=== PATIENT | female | born 1935 | race Caucasian/White ===

== ENCOUNTER 2016-05-27 15:10 | Outpatient (CLI) | payer MEDICARE | END 2016-05-27 15:11 | disposition home or self-care (01) | DX: I48.1 Persistent atrial fibrillation (principal); I50.32 Chronic diastolic (congestive) heart failure; R53.83 Other fatigue; R00.2 Palpitations; I49.5 Sick sinus syndrome ==

== ENCOUNTER 2016-10-19 19:43 | Outpatient (CLI) | payer MEDICARE | END 2016-10-19 19:44 | disposition home or self-care (01) | LOC: LAB.R 19:43 | PROVIDERS: ATTEND Physician Assistant Medical | DX: N30.00 Acute cystitis without hematuria (principal) | CPT/HCPCS: 87086 ==

== ENCOUNTER 2017-03-17 13:17 | Outpatient (CLI) | payer MEDICARE ==
[2017-03-17 18:13] LABS: BASOPHILS % (AUTO) 0.9 %; EOSINOPHILS # (AUTO) 0.2 10^3/uL (0.0-0.7); EOSINOPHILS % (AUTO) 5.3 %; HGB - HEMOGLOBIN 10.1 g/dL (12.0-16.0); LYMPHOCYTES # (AUTO) 0.4 10^3/uL (1.5-3.5); LYMPHOCYTES % (AUTO) 8.6 %; MEAN CORPUSCULAR HEMOGLOBIN 20.9 pg (27.0-31.0); MEAN CORPUSCULAR HGB CONC 29.8 g/dL (32.0-36.0); MEAN CORPUSCULAR VOLUME 70.1 fL (81.0-99.0); MEAN PLATELET VOLUME 7.4 fL (7.9-10.8); MONOCYTES # (AUTO) 0.6 10^3/uL (0.0-1.0); MONOCYTES % (AUTO) 12.5 %; NEUTROPHILS # (AUTO) 3.3 10^3/uL (1.5-6.6); NEUTROPHILS % (AUTO) 72.7 %; PLT - PLATELET COUNT 496 10^3/uL (130-450); RED BLOOD COUNT 4.84 10^6/uL (4.20-5.40); RED CELL DISTRIBUTION WIDTH 18.2 % (12.0-15.0); WHITE BLOOD COUNT 4.6 x10^3/uL (4.8-10.8)
== END 2017-03-17 13:18 | disposition home or self-care (01) ==
LOC: LAB.F 13:17
PROVIDERS: ATTEND Internal Medicine
DX: D64.9 Anemia, unspecified (principal)
CPT/HCPCS: 36415; 82728; 85025

== ENCOUNTER 2017-06-01 08:00 | Outpatient (CLI) | payer MEDICARE | END 2017-06-01 08:01 | LOC: LAB.R 08:00 | PROVIDERS: ATTEND Nurse Practitioner Primary Care | DX: N30.00 Acute cystitis without hematuria (principal) | CPT/HCPCS: 87086 ==

== ENCOUNTER 2017-08-08 08:00 | Outpatient (CLI) | payer MEDICARE | END 2017-08-08 08:01 | disposition home or self-care (01) | LOC: LAB.R 08:00 | PROVIDERS: ATTEND Internal Medicine | DX: N30.00 Acute cystitis without hematuria (principal) | CPT/HCPCS: 87086; 87181 ==

== ENCOUNTER 2018-01-26 15:25 | Outpatient (CLI) | payer MEDICARE ==
--- NOTE | 2018-01-26 16:30 | XRAY Report ---
Reason: PAIN IN LEFT WRIST Procedure Date: 01/26/2018 Accession Number: [id number] / [id number] Procedure: XR - Wrist 2 View LT CPT Code: FULL RESULT: EXAM: LEFT WRIST RADIOGRAPHY EXAM DATE: 01/26/2018 03:36 PM. CLINICAL HISTORY: PAIN IN LEFT WRIST. COMPARISON: None. TECHNIQUE: 2 views. FINDINGS: Bones: Normal. No fractures or bone lesions. Joints: Degenerative narrowing, sclerosis, and spurring at the first CMC joint. No subluxations. Soft Tissues: Diffuse soft tissue swelling. 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 RADIA
== END 2018-01-26 15:26 | disposition home or self-care (01) ==
LOC: DI 15:25
PROVIDERS: ATTEND Internal Medicine
DX: M19.032 Primary osteoarthritis, left wrist (principal)
CPT/HCPCS: 36415; 84550

== ENCOUNTER 2018-03-19 13:20 | Outpatient (CLI) | payer MEDICARE | END 2018-03-19 13:21 | disposition short-term general hospital (02) | LOC: EMS 13:20 | PROVIDERS: ATTEND Surgery | DX: R42 Dizziness and giddiness (principal); M25.561 Pain in right knee; R51 Headache; M25.512 Pain in left shoulder; R35.0 Frequency of micturition; W18.39XA Other fall on same level, initial encounter; Y92.002 Bathroom of unspecified non-institutional (private) residence as the place of occurrence of the external cause | CPT/HCPCS: A0170; A0425; A0427 ==

== ENCOUNTER 2018-03-31 19:27 | Outpatient (CLI) | payer MEDICARE | END 2018-03-31 19:28 | disposition short-term general hospital (02) | LOC: EMS 19:27 | PROVIDERS: ATTEND Surgery | DX: R06.02 Shortness of breath (principal); R41.82 Altered mental status, unspecified; Z98.890 Other specified postprocedural states | CPT/HCPCS: A0425; A0427 ==

== ENCOUNTER 2018-04-06 14:51 | Emergency (ER) | payer MEDICARE ==
--- NOTE | 2018-04-06 18:00 | Ultrasound Report ---
Reason: pain and swelling Procedure Date: 04/06/2018 Accession Number: [id number] / [id number] Procedure: US - Duplex Ext Veins Left CPT Code: FULL RESULT: EXAM: LEFT LOWER EXTREMITY VENOUS ULTRASOUND EXAM DATE: 04/06/2018 04:43 PM. CLINICAL HISTORY: Pain and swelling. COMPARISON: None. TECHNIQUE: Real-time sonographic vascular imaging was performed by the core finisher through the lower extremity utilizing both color-flow and Doppler spectral analysis. Multiple passenger representative static images were saved for review. FINDINGS: Common Femoral Vein (CFV): Normal. CFV-GSV Junction: Normal. Profunda Femoral Vein (PFV): Normal. Femoral Vein (FV) Prox: Normal. Femoral Vein (FV) Mid: Normal. Femoral Vein (FV) Dist: Normal. Popliteal Vein: Normal. Posterior Tibial Veins: Normal. Peroneal Veins: Normal. Contralateral calf veins: Normal. Other: None. IMPRESSION: No evidence for deep venous thrombosis. RADIA
[2018-04-06 18:05] VITALS: BP 131/63
--- NOTE | 2018-04-06 18:48 | ED Physician Documentation ---
History of Present Illness - Stated complaint Stated Complaint: LEG PX/SENT BY ROOF - Chief complaint Chief Complaint: Trauma Ext - History obtained from History obtained from: Patient, Family - History of Present Illness Timing: How many days ago (3) Pain level max: 4 Pain level now: 1 - Additonal information Additional information: 83-year-old female status post right knee patellar fracture surgery 2 weeks ago. States that her left leg started swelling a few days ago and became more painful today. Sent in for an ultrasound to rule out DVT. Better with rest and worse with walking. She is nonweightbearing on the right lower extremity still Review of Systems Constitutional: denies: Fever, Chills Respiratory: denies: Dyspnea, Cough GI: denies: Abdominal Pain, Nausea, Vomiting, Diarrhea Skin: denies: Rash PD PAST MEDICAL HISTORY - Present Medications Home Medications: Ambulatory Orders Medication Instructions Recorded Confirmed Ferrous Gluconate 324 mg PO DAILY 03/21/14 03/28/17 Aspirin 81 mg ORAL DAILY 01/10/15 03/28/17 Pantoprazole [Protonix] 40 mg PO BID 11/06/15 03/28/17 Spironolactone 25 mg PO DAILY 11/06/15 03/28/17 - Allergies Allergies/Adverse Reactions: Allergies Allergy/AdvReac Type Severity Reaction Status Date / Time Sulfa (Sulfonamide Allergy Severe Respiratory Verified 04/06/18 15:27 Antibiotics) apple Allergy Unknown Verified 04/06/18 15:27 cao Allergy Unknown Verified 04/06/18 15:27 mushroom Allergy Unknown Verified 04/06/18 15:27 peach Allergy Unknown Verified 04/06/18 15:27 PD ED PE NORMAL - Vitals Vital signs reviewed: Yes - General General: Alert and oriented X 3, No acute distress - HEENT HEENT: Moist mucous membranes - Neck Neck: Supple, no meningeal sign - Cardiac Cardiac: RRR - Respiratory Respiratory: No respiratory distress, Clear bilaterally - Derm Derm: Warm and dry - Extremities Extremities: Other (Left lower extremity with diffuse pitting edema. No calf tenderness. No skin changes) - Neuro Neuro: Alert and oriented X 3 Results - Vitals Vitals: Vital Signs - 24 hr 04/06/18 04/06/18 15:21 18:03 Temperature 36.5 C 36.6 C Heart Rate 66 65 Respiratory 18 12 Rate Blood Pressure 132/58 H 131/63 H O2 Saturation 99 95 Oxygen O2 Source Room air - Rads (name of study) Duplex ultrasound left lower extremity Radiology: Prelim report reviewed, EMP read contemporaneously, See rad report (No evidence for deep venous thrombosis. ) PD MEDICAL DECISION MAKING - ED course Complexity details: reviewed results, re-evaluated patient, considered differential, d/w patient, d/w family ED course: 83-year-old female presents to the emergency department with left lower extremity swelling, negative for DVT. No evidence of cellulitis. Likely secondary to overuse given her nonweightbearing status on the right lower extremity. Will encourage rest and elevation. Patient counseled regarding signs and symptoms for which I believe and urgent re-evaluation would be necessary. Patient with good understanding of and agreement to plan and is comfortable going home at this time This document was made in part using voice recognition software. While efforts are made to proofread this document, sound alike and grammatical errors may occur. Departure - Departure Disposition: 01 Home, Self Care Clinical Impression: Peripheral edema Condition: Good Instructions: ED Leg Swelling Unilateral Follow-Up: Melvin Douglas MD [Primary Care Provider] - Within 1 week Comments: Return if you worsen. Elevate your legs as much as possible. Your ultrasound is normal tonight. Discharge Date/Time: 04/06/18 19:01
== END 2018-04-06 19:01 | disposition home or self-care (01) ==
LOC: ED 14:51
DX: R60.0 Localized edema (principal); Z79.82 Long term (current) use of aspirin
CPT/HCPCS: 80053; 83690; 85025; 99282; 99283

== ENCOUNTER 2018-04-07 10:49 | Outpatient (CLI) | payer MEDICARE | END 2018-04-07 10:50 | disposition EMS.NT | LOC: EMS 10:49 | PROVIDERS: ATTEND Surgery | DX: Z03.89 Encounter for observation for other suspected diseases and conditions ruled out (principal) ==

== ENCOUNTER 2018-05-07 06:21 | Outpatient (CLI) | payer MEDICARE | END 2018-05-07 06:22 | disposition short-term general hospital (02) | LOC: EMS 06:21 | PROVIDERS: ATTEND Surgery | DX: R06.02 Shortness of breath (principal); R68.83 Chills (without fever) | CPT/HCPCS: A0425; A0429 ==

== ENCOUNTER 2019-05-04 05:57 | Outpatient (CLI) | payer MEDICARE | END 2019-05-04 05:58 | disposition short-term general hospital (02) | LOC: EMS 05:57 | PROVIDERS: ATTEND Surgery | DX: R06.02 Shortness of breath (principal); R05 Cough; R60.0 Localized edema | CPT/HCPCS: A0425; A0427 ==

== ENCOUNTER 2019-05-23 09:49 | Outpatient (CLI) | payer MEDICARE | END 2019-05-23 09:50 | disposition EMS.NT | LOC: EMS 09:49 | PROVIDERS: ATTEND Surgery | DX: R06.02 Shortness of breath (principal) ==

== ENCOUNTER 2019-06-05 19:28 | Outpatient (CLI) | payer MEDICARE | END 2019-06-05 19:29 | disposition critical access hospital (66) | LOC: EMS 19:28 | PROVIDERS: ATTEND Surgery | DX: S01.81XA Laceration without foreign body of other part of head, initial encounter (principal); R42 Dizziness and giddiness; W18.39XA Other fall on same level, initial encounter; Y92.008 Other place in unspecified non-institutional (private) residence as the place of occurrence of the external cause | CPT/HCPCS: A0425; A0429 ==

== ENCOUNTER 2019-06-05 20:01 | Emergency (ER) | payer MEDICARE ==
--- NOTE | 2019-06-05 20:20 | ED Physician Documentation ---
History of Present Illness - Stated complaint Stated Complaint: SYNCOPE - Chief complaint Chief Complaint: Trauma Hd/Nk - History obtained from History obtained from: Patient (84 yo F w/ pmh of atrial fibrillation who is not anticoagulated presents via EMS after a fall at home. Pt states she took a benadryl tonight to help her get to sleep and as she was walking to sit on the couch and watch tv she felt briefly dizzy and then fell. She hit her head on the ground and sustained a large laceration to the forehead. She did not lose consciousness. She denies any pain in the extremities or other injuries. She denies any other prodromal sx including chest pain, dyspnea, heart palpitations, confusion, headache. No known seizure like activity, no incontinence or tongue biting. Pt states she has been feeling well up until the fall and has not had any fever, chills, cough or URI sx, vomiting or diarrhea, or dysuria or other urinary problems. Her only complaint is a headache.) Review of Systems Constitutional: reports: Reviewed and negative Eyes: denies: Loss of vision, Decreased vision, Discharge, Irritation Ears: reports: Reviewed and negative Nose: reports: Reviewed and negative Throat: reports: Reviewed and negative Cardiac: reports: Reviewed and negative Respiratory: reports: Reviewed and negative GI: reports: Reviewed and negative : reports: Reviewed and negative Skin: reports: Abrasion (s), Laceration (s) Musculoskeletal: reports: Reviewed and negative Neurologic: reports: Syncope, Headache, Head injury. denies: Generalized weakness, Focal weakness, Numbness, Difficulty speaking, Seizure, Confused, Altered mental status, Unresponsive, LOC PD PAST MEDICAL HISTORY - Past Medical History Past Medical History: Yes Cardiovascular: Atrial fibrillation GI: Ulcers - Past Surgical History Past Surgical History: Yes Ortho: Knee replacement - Present Medications Home Medications: Ambulatory Orders Medication Instructions Recorded Confirmed Ferrous Gluconate 324 mg PO DAILY 03/21/14 03/28/17 Aspirin 81 mg ORAL DAILY 01/10/15 03/28/17 Pantoprazole [Protonix] 40 mg PO BID 11/06/15 03/28/17 Spironolactone 25 mg PO DAILY 11/06/15 03/28/17 - Allergies Allergies/Adverse Reactions: Allergies Allergy/AdvReac Type Severity Reaction Status Date / Time Sulfa (Sulfonamide Allergy Severe Respiratory Verified 06/05/19 20:41 Antibiotics) apple Allergy Unknown Verified 06/05/19 20:41 cao Allergy Unknown Verified 06/05/19 20:41 mushroom Allergy Unknown Verified 06/05/19 20:41 peach Allergy Unknown Verified 06/05/19 20:41 - Social History Does the pt smoke?: No Smoking Status: Never smoker Does the pt drink ETOH?: Yes ETOH Use: Wine Does the pt have substance abuse?: No - Immunizations Immunizations are current?: Yes - POLST Patient has POLST: No PD ED PE NORMAL - Vitals Vital signs reviewed: Yes - General General: Alert and oriented X 3, No acute distress, Well developed/nourished - HEENT HEENT: Ears normal, Moist mucous membranes, Pharynx benign, Other (There is a 4cm x 4cm skin tear on the left forehead and a superficial linear lac eration/tear just above the left eyebrow. There is a deeper 3cm laceration on the upper left forehead into the hairline. There is contusion and hematoms to the left side of the forehead from eyebrow to hairline. The calvarium is otherwise intact. ) - Neck Neck: Supple, no meningeal sign, No bony TTP, No adenopathy, No JVD - Cardiac Cardiac: No murmur, Strong equal pulses, Other (irregularly irregular) - Respiratory Respiratory: No respiratory distress, Clear bilaterally - Abdomen Abdomen: Normal bowel sounds, Non tender, Non distended - Derm Derm: Normal color, Warm and dry, Other (see skin lac/tear above) - Extremities Extremities: No deformity, No tenderness to palpate, No edema, No calf tenderness / cord - Neuro Neuro: Alert and oriented X 3, Other (oriented, but repeats same questions and complaints repeatedly. ) Eye Opening: Spontaneous Motor: Obeys Commands Verbal: Oriented GCS Score: 15 - Psych Psych: Normal mood, Normal affect Results - Vitals Vitals: Vital Signs - 24 hr 06/05/19 06/05/19 06/05/19 20:11 20:15 21:23 Temperature 36.9 C Heart Rate 80 80 92 Respiratory 18 18 16 Rate Blood Pressure 127/94 H 127/94 H 121/69 O2 Saturation 100 100 97 06/05/19 06/05/19 23:00 23:55 Temperature Heart Rate 87 60 Respiratory 18 16 Rate Blood Pressure 130/90 H 120/77 O2 Saturation 100 100 Oxygen O2 Source Room air - Labs Labs: Laboratory Tests 06/05/19 06/05/19 06/05/19 20:30 20:30 20:30 WBC 7.1 RBC 4.25 Hgb 10.6 L Hct 36.2 L MCV 85.2 MCH 24.9 L MCHC 29.3 L RDW 19.6 H Plt Count 341 MPV 9.1 Neut # (Auto) 6.4 Lymph # (Auto) 0.4 L Blanco # (Auto) 0.3 Eos # (Auto) 0.0 Baso # (Auto) 0.0 Absolute Nucleated RBC 0.00 Nucleated RBC % 0.0 Sodium 133 L Potassium 5.1 H Chloride 103 Carbon Dioxide 21 Anion Gap 9.0 BUN 30 H Creatinine 1.1 H Estimated GFR (MDRD) 47 L Glucose 117 H Calcium 9.4 Total Bilirubin 0.5 AST 55 H ALT 36 Alkaline Phosphatase 90 Troponin I High Sens 17.3 H* Total Protein 7.7 Albumin 4.3 Globulin 3.4 Albumin/Globulin Ratio 1.3 Lipase 62 H 06/05/19 22:41 WBC RBC Hgb Hct MCV MCH MCHC RDW Plt Count MPV Neut # (Auto) Lymph # (Auto) Blanco # (Auto) Eos # (Auto) Baso # (Auto) Absolute Nucleated RBC Nucleated RBC % Sodium Potassium Chloride Carbon Dioxide Anion Gap BUN Creatinine Estimated GFR (MDRD) Glucose Calcium Total Bilirubin AST ALT Alkaline Phosphatase Troponin I High Sens 21.9 H* Total Protein Albumin Globulin Albumin/Globulin Ratio Lipase Procedures - Laceration (location) left forehead Wound type: Other (There is a 4cm diameter around skin tear with a partially viable flap on the left forehead which was irrigated and then repaired with 7 simple interruptd #6.0 nylon sutures. The superficial skin tear/lac over the left eyebrow was clsoed w/ steristrips. The laceration left uppper forehead was closed with 8 continuous locked sutures with excellent wound aprpoximation.) PD MEDICAL DECISION MAKING - ED course Complexity details: reviewed old records, reviewed results, re-evaluated patient, considered differential, d/w patient ED course: Pt presented after a fall at home. She experienced dizziness before the fall which is not uncommon for her per chart review. She also took a benadryl which she states tends to make her "loopy." I have advised against taking benadryl in the future given age-related adverse reactions. She did not lose consciousness or have any seizure like activity. She had no chest pain or sob prodrome making a cardioopulmonary event less likely. Her EKG here showed afib which is her baseline. She had no acute st changes. Her trop was mildly elevated and I d/w Dr. Cantor who advised this small elevation on a high sensitivity trop given age and other comorbidities and lack of cardiac sx was ok for discharge and outpatient follow up which I d/w pt. Her head and neck CTs were negative for acute pathology. She had a large skin tear and laceration which I repaired. I advised fup w/ clinic in 7 days to re-eval skin tear and remove sutures. She was advised to keep clean/dry and apply cool compress. Return if s/sx of infection or otherwise new sx such as worsening headache, vision changes, chest pain, dyspnea, dizziness, or other new symptoms. Pt notes understanding of all instructions and all questions answered. Departure - Departure Disposition: 01 Home, Self Care Clinical Impression: Laceration Injury of head and neck Qualifiers: Encounter type: initial encounter Qualified Code(s): S09.90XA - Unspecified injury of head, initial encounter Condition: Good Instructions: ED Head Injury Closed, ED Laceration Repair Infec, ED Laceration Ext Sutr Stap Tape Comments: Follow up in 7-10 days for suture removal. The steristrips will fall off in 3-7 days, leave them in place until they fall off. Keep site clean and dry. You can wash gently with soap and water. Use and ice pack for the swelling. You may take tylenol for headache. PLEASE STOP TAKING BENADRYL. It is not a safe medication for people as they age and it can increase your risk of falling. You also have a history of frequent dizziness therefore want to avoid any medications that could make this worse. Make sure you are drinking plenty of water. If you have recurrent symptoms, persistent dizziness, confusion, chest pain, dyspnea, or other new symptoms, please return to the ER. Discharge Date/Time: 06/05/19 23:56
[2019-06-05 20:38] LABS: BASOPHILS % (AUTO) 0.3 %; HGB - HEMOGLOBIN 10.6 g/dL (12.0-16.0); LYMPHOCYTES # (AUTO) 0.4 10^3/uL (1.5-3.5); LYMPHOCYTES % (AUTO) 4.9 %; MEAN CORPUSCULAR HEMOGLOBIN 24.9 pg (27.0-31.0); MEAN CORPUSCULAR HGB CONC 29.3 g/dL (32.0-36.0); MEAN CORPUSCULAR VOLUME 85.2 fL (81.0-99.0); MEAN PLATELET VOLUME 9.1 fL (7.9-10.8); MONOCYTES # (AUTO) 0.3 10^3/uL (0.0-1.0); MONOCYTES % (AUTO) 4.1 %; NEUTROPHILS # (AUTO) 6.4 10^3/uL (1.5-6.6); NEUTROPHILS % (AUTO) 89.9 %; PLT - PLATELET COUNT 341 10^3/uL (130-450); RED BLOOD COUNT 4.25 10^6/uL (4.20-5.40); RED CELL DISTRIBUTION WIDTH 19.6 % (12.0-15.0); WHITE BLOOD COUNT 7.1 x10^3/uL (4.8-10.8)
[2019-06-05 20:53] LABS: ALBUMIN 4.3 g/dL (3.2-5.5); ALBUMIN/GLOBULIN RATIO 1.3 (1.0-2.2); BILIRUBIN,TOTAL 0.5 mg/dL (0.2-1.0); CALCIUM 9.4 mg/dL (8.5-10.3); CREATININE 1.1 mg/dL (0.4-1.0); TOTAL PROTEIN 7.7 g/dL (6.7-8.2)
--- NOTE | 2019-06-05 21:25 | CT Report ---
Reason: fall, left head contusions Procedure Date: 06/05/2019 Accession Number: [id number] / [id number] Procedure: CT - HEAD WO CPT Code: Final Report FULL RESULT: EXAM: CT HEAD EXAM DATE: 06/05/2019 09:06 PM. CLINICAL HISTORY: Fall, left head contusions. COMPARISON: None. TECHNIQUE: Multiaxial CT images were obtained from the foramen magnum to the vertex. Reformats: Sagittal and coronal. IV contrast: None. In accordance with CT protocol optimization, one or more of the following dose reduction techniques were utilized for this exam: automated exposure control, adjustment of mA and/or KV based on patient size, or use of iterative reconstructive technique. FINDINGS: Parenchyma: Negative for acute intracranial hemorrhage. There is no midline shift or mass-effect. There is mild nonfocal periventricular white matter hypodensity. Extraaxial Spaces: No subdural or epidural collections identified. Ventricles: Symmetric in size and normal in position. Sinuses and Orbits: Imaged paranasal sinuses, orbits, and mastoids show no significant abnormality. Bones: No evidence of fracture or calvarial defect. Other: There is a soft tissue defect and laceration of the anterior left scalp. No foreign body. IMPRESSION: 1. Negative for an acute or focal intracranial abnormality. 2. Anterior left scalp laceration without fracture. [facility]
--- NOTE | 2019-06-05 21:26 | XRAY Report ---
Reason: Chest Pain Procedure Date: 06/05/2019 Accession Number: [id number] / [id number] Procedure: XR - Chest 1 View X-Ray CPT Code: 53392 Final Report FULL RESULT: EXAM: CHEST RADIOGRAPHY EXAM DATE: 06/05/2019 09:14 PM. CLINICAL HISTORY: Chest Pain. COMPARISON: CXR PA TECHNIQUE: 1 view. FINDINGS: Cardiac device leads overlie the right atrium and ventricle. Atherosclerotic plaque calcifications are seen in the aorta. The heart is at the upper limits of normal in size. Biapical pleural thickening with upper lobe parenchymal scarring has slightly increased when compared to the 2007 examination. Calcified hilar lymph nodes are new. The lungs are hyperinflated. There is no focal consolidation, pleural effusion, or pneumothorax. There is a partially imaged old proximal left humeral fracture. IMPRESSION: Biapical pleural thickening and upper lobe parenchymal scarring, slightly increased since 2007. No focal consolidation. [facility]
--- NOTE | 2019-06-05 21:31 | CT Report ---
Reason: neck pain Procedure Date: 06/05/2019 Accession Number: [id number] / [id number] Procedure: CT - CERVICAL SPINE WO CPT Code: Final Report FULL RESULT: EXAM: CT CERVICAL SPINE WITHOUT CONTRAST DATE: 06/05/2019 09:06 PM. HISTORY: Neck pain. COMPARISONS: None. TECHNIQUE: Thin-section axial images were acquired of the cervical spine without contrast. Post-processing: Coronal and sagittal reformats. Other: None. In accordance with CT protocol optimization, one or more of the following dose reduction techniques were utilized for this exam: automated exposure control, adjustment of mA and/or KV based on patient size, or use of iterative reconstructive technique. FINDINGS: Alignment: Dextroscoliosis. No spondylolisthesis. Bones: No fracture or bone lesion. Interspace Levels/Facets: C1-C2: Narrowed. C2-C3: Mild disk height loss with mild diffuse disk bulge. C3-C4: Mild diffuse disk bulge and bilateral facet hypertrophy. C4-C5: Severe disk height loss with posterior osteophyte. Bilateral facet hypertrophy. Severe right neuroforaminal stenosis. C5-C6: Severe disk height loss. Posterior osteophytes and bilateral facet hypertrophy. Severe right neuroforaminal stenosis. C6-C7: Severe disk height loss. Bilateral facet hypertrophy. Severe right neuroforaminal stenosis. C7-T1: Unremarkable. Musculature: Normal. No fatty atrophy. Other: The paravertebral and prevertebral soft tissues are unremarkable. Biapical pleural thickening with parenchymal scarring, right greater than left, with bronchiectasis. Calcified granulomas are also seen in the right upper lobe. IMPRESSION: 1. No evidence of acute fracture or subluxation. 2. Cervical spondylosis. RADIA
[2019-06-05 23:56] VITALS: BP 120/77
== END 2019-06-05 23:56 | disposition home or self-care (01) ==
LOC: EDBD → EDUNIT# → ED 20:01
DX: S01.81XA Laceration without foreign body of other part of head, initial encounter (principal); S01.112A Laceration without foreign body of left eyelid and periocular area, initial encounter; R42 Dizziness and giddiness; T45.0X5A Adverse effect of antiallergic and antiemetic drugs, initial encounter; Y92.009 Unspecified place in unspecified non-institutional (private) residence as the place of occurrence of the external cause; I48.91 Unspecified atrial fibrillation
CPT/HCPCS: 12013; 36415; 70450; 71045; 72125; 80053; 83690; 84484; 85025; 93005; 99284

== ENCOUNTER 2019-08-16 16:58 | Outpatient (CLI) | payer MEDICARE ==
[2019-08-16 20:01] LABS: BASOPHILS # (AUTO) 0.1 10^3/uL (0.0-0.1); BASOPHILS % (AUTO) 0.7 %; EOSINOPHILS # (AUTO) 0.2 10^3/uL (0.0-0.7); EOSINOPHILS % (AUTO) 3.2 %; HGB - HEMOGLOBIN 11.9 g/dL (12.0-16.0); LYMPHOCYTES # (AUTO) 0.5 10^3/uL (1.5-3.5); LYMPHOCYTES % (AUTO) 6.9 %; MEAN CORPUSCULAR HEMOGLOBIN 24.4 pg (27.0-31.0); MEAN CORPUSCULAR HGB CONC 29.2 g/dL (32.0-36.0); MEAN CORPUSCULAR VOLUME 83.6 fL (81.0-99.0); MEAN PLATELET VOLUME 9.5 fL (7.9-10.8); MONOCYTES # (AUTO) 0.8 10^3/uL (0.0-1.0); MONOCYTES % (AUTO) 10.9 %; NEUTROPHILS # (AUTO) 5.6 10^3/uL (1.5-6.6); NEUTROPHILS % (AUTO) 77.9 %; PLT - PLATELET COUNT 390 10^3/uL (130-450); RED BLOOD COUNT 4.88 10^6/uL (4.20-5.40); RED CELL DISTRIBUTION WIDTH 19.4 % (12.0-15.0); WHITE BLOOD COUNT 7.1 x10^3/uL (4.8-10.8)
[2019-08-16 20:31] LABS: ALBUMIN 4.3 g/dL (3.2-5.5); ALBUMIN/GLOBULIN RATIO 1.3 (1.0-2.2); ALKALINE PHOSPHATASE 125 IU/L (42-121); ALT ALANINE AMINOTRANSFERASE 25 IU/L (10-60); AST ASPARTATE AMINOTRANSFERASE 31 IU/L (10-42); BILIRUBIN,TOTAL 0.5 mg/dL (0.2-1.0); BUN - BLOOD UREA NITROGEN 23 mg/dL (6-20); CALCIUM 9.8 mg/dL (8.5-10.3); CARBON DIOXIDE - CO2 26 mmol/L (21-32); CHLORIDE 98 mmol/L (101-111); DIGOXIN 1.6 ng/mL; GLUCOSE 89 mg/dL (70-100); SODIUM 134 mmol/L (135-145); TOTAL PROTEIN 7.7 g/dL (6.7-8.2)
== END 2019-08-16 16:59 | disposition home or self-care (01) ==
LOC: LAB.S 16:58
PROVIDERS: ATTEND Nurse Practitioner Family
DX: I10 Essential (primary) hypertension (principal); I48.91 Unspecified atrial fibrillation
CPT/HCPCS: 36415; 80053; 80162; 84443; 85025

== ENCOUNTER 2020-04-14 01:09 | Outpatient (CLI) | payer MEDICARE | END 2020-04-14 01:10 | disposition left against medical advice (07) | LOC: EMS 01:09 | DX: S51.812A Laceration without foreign body of left forearm, initial encounter (principal); S99.912A Unspecified injury of left ankle, initial encounter; W18.30XA Fall on same level, unspecified, initial encounter; Y92.002 Bathroom of unspecified non-institutional (private) residence as the place of occurrence of the external cause ==

== ENCOUNTER 2020-04-14 07:45 | Outpatient (CLI) | payer MEDICARE | END 2020-04-14 07:46 | disposition short-term general hospital (02) | LOC: EMS 07:45 | DX: S99.912A Unspecified injury of left ankle, initial encounter (principal); W18.39XA Other fall on same level, initial encounter; Y93.E1 Activity, personal bathing and showering; Y92.002 Bathroom of unspecified non-institutional (private) residence as the place of occurrence of the external cause | CPT/HCPCS: A0425; A0427 ==

== ENCOUNTER 2020-09-24 13:18 | Outpatient (CLI) | payer MEDICARE ==
[2020-09-24 19:53] LABS: BASOPHILS % (AUTO) 0.6 %; EOSINOPHILS # (AUTO) 0.2 10^3/uL (0.0-0.7); EOSINOPHILS % (AUTO) 3.5 %; HCT - HEMATOCRIT 43.1 % (37.0-47.0); HGB - HEMOGLOBIN 13.1 g/dL (12.0-16.0); LYMPHOCYTES # (AUTO) 0.5 10^3/uL (1.5-3.5); LYMPHOCYTES % (AUTO) 10.6 %; MEAN CORPUSCULAR HGB CONC 30.4 g/dL (32.0-36.0); MEAN CORPUSCULAR VOLUME 102.1 fL (81.0-99.0); MEAN PLATELET VOLUME 9.9 fL (7.9-10.8); MONOCYTES # (AUTO) 0.5 10^3/uL (0.0-1.0); MONOCYTES % (AUTO) 10.8 %; NEUTROPHILS # (AUTO) 3.6 10^3/uL (1.5-6.6); NEUTROPHILS % (AUTO) 74.3 %; PLT - PLATELET COUNT 329 10^3/uL (130-450); RED BLOOD COUNT 4.22 10^6/uL (4.20-5.40); RED CELL DISTRIBUTION WIDTH 17.6 % (12.0-15.0); WHITE BLOOD COUNT 4.8 x10^3/uL (4.8-10.8)
[2020-09-24 20:16] LABS: BUN - BLOOD UREA NITROGEN 21 mg/dL (6-20); CALCIUM 9.3 mg/dL (8.5-10.3); CARBON DIOXIDE - CO2 28 mmol/L (21-32); CHLORIDE 100 mmol/L (101-111); DIGOXIN 0.5 ng/mL; GFR - MDRD 53 (>89); GLUCOSE 95 mg/dL (70-100); PHOSPHORUS 3.3 mg/dL (2.5-4.6); POTASSIUM 4.1 mmol/L (3.5-5.0); SODIUM 136 mmol/L (135-145)
== END 2020-09-24 13:19 | disposition home or self-care (01) ==
LOC: LAB.S 13:18
PROVIDERS: ATTEND Internal Medicine Cardiovascular Disease
DX: I50.32 Chronic diastolic (congestive) heart failure (principal); D50.8 Other iron deficiency anemias
CPT/HCPCS: 36415; 80069; 80162; 83880; 85025

== ENCOUNTER 2020-10-18 08:00 | Outpatient (CLI) | payer MEDICARE | END 2020-10-18 23:59 | disposition home or self-care (01) | LOC: LAB.S 08:00 | PROVIDERS: ATTEND Physician Assistant | DX: M54.9 Dorsalgia, unspecified (principal); R41.0 Disorientation, unspecified | CPT/HCPCS: 87086 ==

== ENCOUNTER 2020-11-15 18:00 | Outpatient (CLI) | payer MEDICARE | END 2020-11-15 18:01 | disposition critical access hospital (66) | LOC: EMS 18:00 | DX: S00.81XA Abrasion of other part of head, initial encounter (principal); S01.21XA Laceration without foreign body of nose, initial encounter; S60.419A Abrasion of unspecified finger, initial encounter; W18.30XA Fall on same level, unspecified, initial encounter; Y93.G1 Activity, food preparation and clean up; Y92.000 Kitchen of unspecified non-institutional (private) residence as the place of occurrence of the external cause | CPT/HCPCS: A0425; A0429 ==

== ENCOUNTER 2020-11-15 18:38 | Emergency (ER) | payer MEDICARE ==
--- NOTE | 2020-11-15 19:00 | ED Physician Documentation ---
PD HPI Fall - Stated complaint Stated Complaint: GLF/ FACE INJ - History obtained from History obtained from: Patient, EMS - Additional information Additional information: 85yo woman presents by EMS, falling at home, no clear LOC. Mutlitple facial lacerations. C/O neck Pain. Vague historian but per review of the chart has afib and not anticoagulated. Admits to drinking wine tonight. PD PAST MEDICAL HISTORY - Past Medical History Cardiovascular: Atrial fibrillation GI: Ulcers - Past Surgical History Past Surgical History: Yes Ortho: Knee replacement - Present Medications Home Medications: Ambulatory Orders Medication Instructions Recorded Confirmed Ferrous Gluconate 324 mg PO DAILY 03/21/14 03/28/17 Aspirin 81 mg ORAL DAILY 01/10/15 03/28/17 Pantoprazole [Protonix] 40 mg PO BID 11/06/15 03/28/17 Spironolactone 25 mg PO DAILY 11/06/15 03/28/17 - Allergies Allergies/Adverse Reactions: Allergies Allergy/AdvReac Type Severity Reaction Status Date / Time Sulfa (Sulfonamide Allergy Severe Respiratory Verified 11/15/20 19:07 Antibiotics) apple Allergy Unknown Verified 11/15/20 19:07 cao Allergy Unknown Verified 11/15/20 19:07 mushroom Allergy Unknown Verified 11/15/20 19:07 peach Allergy Unknown Verified 11/15/20 19:07 - Social History Does the pt smoke?: No Smoking Status: Never smoker Does the pt drink ETOH?: Yes Does the pt have substance abuse?: No - Immunizations Immunizations are current?: Yes - POLST Patient has POLST: No PD ED PE NORMAL - Vitals Vital signs reviewed: Yes - General General: Alert and oriented X 3, Other (Smells slightly of alcohol, vague historian, mildly uncooperative) - HEENT HEENT: PERRL, EOMI, Other (Laceration on the right forehead, laceration over the bridge of the nose) - Neck Neck: No bony TTP (But kept in the collar pending imaging given complaints of neck pain and potential intoxication) - Cardiac Cardiac: Other (Irregularly irregular without murmur) - Respiratory Respiratory: No respiratory distress, Clear bilaterally - Abdomen Abdomen: Normal bowel sounds, Soft, Non tender - Extremities Extremities: No deformity, No tenderness to palpate, Normal ROM s pain, Other (Lacerations over the right third PIP dorsally without tenderness or limited range of motion) - Neuro Neuro: Alert and oriented X 3, Normal speech Eye Opening: Spontaneous Motor: Obeys Commands Verbal: Oriented GCS Score: 15 - Psych Psych: Other (Cantankerous, intermittently cooperative) Results - Vitals Vitals: Vital Signs - 24 hr 11/15/20 11/15/20 18:38 21:54 Temperature 36.2 C L Heart Rate 79 Respiratory 18 18 Rate Blood Pressure 187/92 H 156/110 H O2 Saturation 98 99 Oxygen O2 Source Room air - Rads (name of study) CT of the head, cervical spine, and face notable for nasal bone fracture, degenerative changes in the spine, no acute intracranial abnormality. Radiology: EMP read contemporaneously Procedures - Laceration (location) multiple Wound type: Other (There is a 1.5 cm curvilinear shallow laceration on the forehead that was closed with Dermabond, a 2 cm laceration over the bridge of the nose closed with 5x6 0 Ethilon, multiple small lacerations over the right hand and forearm measuring a total of 3 cm closed with Dermabond and Steri- Strips.) Wound preparation: Irrigated copiously NS PD MEDICAL DECISION MAKING - ED course ED course: 85-year-old woman had a fall likely related to alcohol use tonight. She has a broken nose and multiple lacerations which were repaired. Advised not to drink. Family will come pick her up. She is cantankerous, refusing to wear a mask. Feeling that the pandemic is hoax. Departure - Departure Disposition: 01 Home, Self Care Clinical Impression: Multiple lacerations Injury of head and neck Qualifiers: Encounter type: initial encounter Qualified Code(s): S09.90XA - Unspecified injury of head, initial encounter Nasal fracture Qualifiers: Encounter type: initial encounter Fracture type: closed Qualified Code(s): S02.2XXA - Fracture of nasal bones, initial encounter for closed fracture Facial laceration Qualifiers: Encounter type: initial encounter Qualified Code(s): S01.81XA - Laceration without foreign body of other part of head, initial encounter Condition: Good Record reviewed to determine appropriate education?: Yes Instructions: ED Head Injury Closed, ED Fx Nasal Laceration Sutr Or Tape Follow-Up: Daiana Hassna MD [Primary Care Provider] - Comments: Best to avoid alcohol especially with your other heart medications. Return for new or worsening symptoms. Schedule a recheck with Dr. Hassan next Tuesday for wound check and suture removal.
[2020-11-15] MEDS ORDERED: TETANUS/DIPHTHERIA/PERTUSSIS 0.5 ML SYRINGE IM ONE (19:01)
[2020-11-15] MEDS ORDERED: LIDOCAINE-EPINEPH-TETRACAINE 3 ML SYRINGE TOP STA (19:07)
--- NOTE | 2020-11-15 19:51 | CT Report ---
PROCEDURE: HEAD WO INDICATIONS: head injury TECHNIQUE: Noncontrast 4.5 mm thick angled axial sections acquired from the foramen magnum to the vertex. For r adiation dose reduction, the following was used: automated exposure control, adjustment of mA and/or kV according to patient size. COMPARISON: None. FINDINGS: Image quality: Excellent. CSF spaces: Basal cisterns are patent. No extra-axial fluid collections. Ventricles are normal in size and shape. Brain: No midline shift. No intracranial masses or hemorrhage. Periventricular white matter hypoden sities consistent with small vessel ischemic change. Skull and face: Calvarium and visualized facial bones are intact, without suspicious lesions. Sinuses: Visualized sinuses and mastoids are clear. IMPRESSION: 1. No acute intracranial abnormality. 2. Small vessel ischemic change. Reviewed by: Giorgi Weinstein on 11/15/2020 7:50 PM PDT Approved by: Giorgi Weinstein on 11/15/2020 7:50 PM PDT Station ID: [id number]
--- NOTE | 2020-11-15 19:53 | CT Report ---
PROCEDURE: CERVICAL SPINE WO INDICATIONS: neck injury TECHNIQUE: Noncontrast 3 mm thick sections acquired from the skull base to the T4 level. Sagittal and coronal r eformats were then constructed. For radiation dose reduction, the following was used: automated exp osure control, adjustment of mA and/or kV according to patient size. COMPARISON: None. FINDINGS: Image quality: Excellent. Bones: No fractures or dislocations. Visualized superior ribs are intact. There is degenerative di sc disease at C4-5, C5-6, and C6-7. Soft tissues: Prevertebral soft tissues are normal in thickness. No paravertebral hematomas. No ap ical pneumothoraces. The lung apices have traction bronchiectasis. IMPRESSION: No acute traumatic abnormality of the cervical spine. Reviewed by: Giorgi Weinstein on 11/15/2020 7:52 PM PDT Approved by: Giorgi Weinstein on 11/15/2020 7:52 PM PDT Station ID: [id number]
--- NOTE | 2020-11-15 19:59 | CT Report ---
PROCEDURE: MAXILLOFACIAL WO INDICATIONS: facial injury TECHNIQUE: Noncontrast 1.5 mm thick axial images acquired from the mandible through the frontal sinuses, with co anjelica and sagittal reformatting. For radiation dose reduction, the following was used: automated ex posure control, adjustment of mA and/or kV according to patient size. COMPARISON: None. FINDINGS: Image quality: Excellent. Bones and teeth: Orbital mejias are intact. Sinus mejias show no fracture or deformity. The nasal bon e has a fracture anteriorly. Surrounding air is seen in the soft tissues. The nasal septum is deviate d to the left. Both temporomandibular joints have degenerative changes. Visualized portions of the ma ndible demonstrate no fractures or subluxation. Zygomatic arches are intact. Pterygoid plates are i ntact. Visualized portions of the skull base and auditory canals are intact. Sinuses: Paranasal sinuses are aerated, without fluid levels, mucosal thickening, or mucoceles. Mas toid air cells are aerated. Soft tissues: No edema, masses, or fluid collections. No enlarged lymph nodes. No soft tissue lace rations or debris. Vascular: Visualized vascular structures appear normal in the absence of contrast. Bony vascular fo ramina and canals are intact. IMPRESSION: Nasal bone fracture. Reviewed by: Giorgi Weinstein on 11/15/2020 7:58 PM PDT Approved by: Giorgi Weinstein on 11/15/2020 7:58 PM PDT Station ID: [id number]
[2020-11-15 21:55] VITALS: BP 156/110
== END 2020-11-15 22:07 | disposition home or self-care (01) ==
LOC: EDUNIT# → ED 18:38
DX: S01.81XA Laceration without foreign body of other part of head, initial encounter (principal); S01.21XA Laceration without foreign body of nose, initial encounter; S61.411A Laceration without foreign body of right hand, initial encounter; S51.811A Laceration without foreign body of right forearm, initial encounter; S09.90XA Unspecified injury of head, initial encounter; S02.2XXA Fracture of nasal bones, initial encounter for closed fracture; W19.XXXA Unspecified fall, initial encounter; Y92.009 Unspecified place in unspecified non-institutional (private) residence as the place of occurrence of the external cause
CPT/HCPCS: 12002; 12013; 90471; 99281; 99284

== ENCOUNTER 2021-02-13 11:32 | Outpatient (CLI) | payer MEDICARE | END 2021-02-13 11:33 | disposition short-term general hospital (02) | LOC: EMS 11:32 | DX: S81.812A Laceration without foreign body, left lower leg, initial encounter (principal); W19.XXXA Unspecified fall, initial encounter; Y92.009 Unspecified place in unspecified non-institutional (private) residence as the place of occurrence of the external cause | CPT/HCPCS: A0425; A0429 ==

== ENCOUNTER 2021-10-26 15:04 | Outpatient (CLI) | payer MEDICARE ==
[2021-10-26 16:06] LABS: BILIRUBIN,URINE NEGATIVE (NEGATIVE); GLUCOSE, URINE (UA) NEGATIVE (NEGATIVE); KETONES,URINE (UA) NEGATIVE (NEGATIVE); LEUKOCYTE ESTERASE, URINE LARGE (NEGATIVE); NITRITE,URINE POSITIVE (NEGATIVE); OCCULT BLOOD,URINE SMALL (NEGATIVE); PROTEIN,URINE NEGATIVE (NEGATIVE); UROBILINOGEN,URINE 0.2 (NORMAL) E.U./dL (NORMAL)
[2021-10-26 16:12] LABS: CLARITY,URINE HAZY (CLEAR)
[2021-10-26 16:25] LABS: BACTERIA,URINE Many /HPF (None Seen); RBC,URINE TNTC /HPF (0-5); SQUAMOUS EPITHELIAL CELL,UR FEW Squamous (<= Few); WBC CLUMPS,URINE PRESENT; WBC,URINE >25 /HPF (0-5)
== END 2021-10-26 23:59 | disposition home or self-care (01) ==
LOC: LAB.R 15:04
PROVIDERS: ATTEND Internal Medicine
DX: R39.9 Unspecified symptoms and signs involving the genitourinary system (principal)
CPT/HCPCS: 81001; 81003; 87086; 87181

== ENCOUNTER 2023-05-05 12:04 | Outpatient (CLI) | payer MEDICARE | END 2023-05-05 12:05 | disposition home or self-care (01) | LOC: LAB.S 12:04 | PROVIDERS: ATTEND Internal Medicine Cardiovascular Disease | DX: I48.91 Unspecified atrial fibrillation (principal); I25.10 Atherosclerotic heart disease of native coronary artery without angina pectoris; I25.83 Coronary atherosclerosis due to lipid rich plaque; I15.9 Secondary hypertension, unspecified; I50.9 Heart failure, unspecified; Z79.899 Other long term (current) drug therapy; M1A.9XX1 Chronic gout, unspecified, with tophus (tophi) | CPT/HCPCS: 36415; 80053; 80061; 80162; 83721; 83880; 84443; 84550; 85025 ==

== ENCOUNTER 2024-03-08 13:27 | Inpatient (IN) ==
--- NOTE | 2024-03-08 14:00 | ED Physician Documentation ---
History of Present Illness Stated complaint Stated Complaint: GENERALIZED WEAKNESS Chief complaint Chief Complaint: General History obtained from History obtained from: Patient and EMS History of Present Illness Pain level max: 0 Pain level now: 0 Additonal information Additional information: Patient is an 89-year-old female who presents to the emergency department stating that she has had cough and congestion for the past several days, has a history of atrial fibrillation has not been taking her metoprolol. Also has a history of asthma and has not been taking her albuterol. Reportedly when EMS arrived her pulse ox was 92% on room air. Patient states she has not had any abdominal pain, nausea or vomiting. No fevers. No chills. No urinary symptoms. Meds/Allgy Home Medications Ambulatory Orders Medication Instructions Recorded Confirmed ferrous gluconate 324 mg (38 mg 324 mg PO DAILY 03/21/14 03/28/17 iron) tablet aspirin 81 mg chewable tablet 81 mg ORAL DAILY 01/10/15 03/28/17 pantoprazole 40 mg tablet,delayed 40 mg PO BID 11/06/15 03/28/17 release spironolactone 50 mg tablet 25 mg PO DAILY 11/06/15 03/28/17 Allergies Allergies Allergy/AdvReac Type Severity Reaction Status Date / Time Sulfa (Sulfonamide Allergy Severe Respiratory Verified 03/08/24 13:54 Antibiotics) apple Allergy Unknown Verified 03/08/24 13:54 cao Allergy Unknown Verified 03/08/24 13:54 mushroom Allergy Unknown Verified 03/08/24 13:54 peach Allergy Unknown Verified 03/08/24 13:54 [facility] Social History Social History Smoking Status: Never smoker Do you feel safe in your home environment?: Yes Suffered physical, verbal, emotional, or financial abuse?: No History of Abuse: No ETOH Use: Frequency: Daily POLST Patient has POLST: No Exam Constitutional normal general appearance and no apparent distress HENMT TMs normal bilaterally and oropharynx normal moist mucous membranes Eyes PERRL Neck/C-Spine visual inspection normal Respiratory Mild wheezing bilaterally, mild increased work of breathing Cardiovascular Tachycardic, irregular Gastrointestinal abdomen normal to inspection, abdomen soft to palpation, nontender to palpation and nondistended Genitourinary no CVA tenderness Extremities no deformity no edema Neurology speech normal Psychiatry mental status grossly normal and oriented x3 Skin skin color normal and no rash Results Vitals Vitals: Vital Signs - 24 hr 03/08/24 13:48 03/08/24 14:36 03/08/24 16:13 Pulse Rate 132 H 147 H 98 Respiratory Rate 22 16 23 Blood Pressure 120/75 98/65 O2 Saturation 96 92 O2 Source Nasal cannula Room air Nasal cannula If not protocol: Oxygen Flow, liters/minute 2 2 1 Pain Intensity 0 03/08/24 17:08 Pulse Rate 104 H Respiratory Rate 22 Blood Pressure O2 Saturation O2 Source Room air If not protocol: Oxygen Flow, liters/minute Pain Intensity Oxygen O2 Source Room air EKG (time done) 1524: EKG releavant findings:: EKG personally interpreted by author of this note. Relevant findings are: Rate: Other (Rate 101 bpm. Atrial fibrillation. Normal QRS. Normal axis. Q waves in V2, V3. No ST elevation) Labs Labs: Laboratory Tests 03/08/24 03/08/24 14:09 14:11 WBC 6.0 RBC 4.61 Hgb 14.6 Hct 47.9 H MCV 103.9 H MCH 31.7 H MCHC 30.5 L RDW 14.3 Plt Count 235 MPV 9.5 Neut # (Auto) 5.0 Lymph # (Auto) 0.4 L [place] # (Auto) 0.6 Eos # (Auto) 0.0 Baso # (Auto) 0.0 Absolute Nucleated RBC 0.00 Nucleated RBC % 0.0 Sodium 135 Potassium 4.8 H Chloride 97 L Carbon Dioxide 31 Anion Gap 7.0 BUN 37 H Creatinine 1.3 Estimated GFR (MDRD) 39 L Glucose 82 Calcium 9.6 Total Bilirubin 0.3 AST 40 ALT 16 Alkaline Phosphatase 96 Total Protein 7.6 Albumin 3.6 Globulin 4.0 Albumin/Globulin Ratio 0.9 L Nasal Adenovirus (PCR) NOT DETECTED Nasal B. parapertussis DNA (PCR) NOT DETECTED Nasal Coronavir 229E PCR NOT DETECTED Nasal Coronavir HKU1 PCR NOT DETECTED Nasal Coronavir NL63 PCR NOT DETECTED Nasal Coronavir OC43 PCR NOT DETECTED Nasal Enterovir/Rhinovir PCR NOT DETECTED Nasal Influ A H1 2009 PCR DETECTED A Nasal Influenza B PCR NOT DETECTED Nasal Parainfluen 1 PCR NOT DETECTED Nasal Parainfluen 2 PCR NOT DETECTED Nasal Parainfluen 3 PCR NOT DETECTED Nasal Parainfluen 4 PCR NOT DETECTED Nasal RSV (PCR) NOT DETECTED Nasal B.pertussis DNA PCR NOT DETECTED Nasal C.pneumoniae (PCR) NOT DETECTED Rolando Human Metapneumo PCR NOT DETECTED Nasal M.pneumoniae (PCR) NOT DETECTED Nasal SARS-CoV-2 (PCR) NOT DETECTED Rads (name of study) cxr: Relevant Findings:: Final report received PD Medical Decision Making ED course Complexity details: reviewed results, considered differential and d/w patient ED course: Chest x-ray does not show any acute abnormalities. She is positive for influenza A. She is out of the window for Tamiflu. Has atrial fibrillation with rapid ventricular response as well as hypoxia, 87 to 88% on room air. Given 2 nebulizer treatments and feels better but is continuing to have tachycardia and hypoxia, given diltiazem push. There are no beds available in the [facility] and surrounding hospitals or at or above capacity as well, therefore she will be monitored in the emergency department to see if she improves overnight. Patient is signed out to the oncoming emergency department physician. This document was made in part using voice recognition software. While efforts are made to proofread this document, sound alike and grammatical errors may occur. Discharge Plan Discharge Condition: Good Clinical Impression: Influenza A, Atrial fibrillation with RVR, Hypoxia Prescriptions: No Action ferrous gluconate 324 MG tablet 324 mg PO DAILY aspirin 81 MG tablet,chewable 81 mg ORAL DAILY pantoprazole 40 MG tablet,delayed release (DR/EC) 40 mg PO BID spironolactone 50 MG tablet 25 mg PO DAILY Print Language: Icelandic Stand Alone Forms: PCP List
[2024-03-08 14:14] LABS: BASOPHILS % (AUTO) 0.3 %; HCT - HEMATOCRIT 47.9 % (37.0-47.0); HGB - HEMOGLOBIN 14.6 g/dL (12.0-16.0); LYMPHOCYTES # (AUTO) 0.4 10^3/uL (1.5-3.5); LYMPHOCYTES % (AUTO) 6.9 %; MEAN CORPUSCULAR HEMOGLOBIN 31.7 pg (27.0-31.0); MEAN CORPUSCULAR HGB CONC 30.5 g/dL (32.0-36.0); MEAN CORPUSCULAR VOLUME 103.9 fL (81.0-99.0); MEAN PLATELET VOLUME 9.5 fL (7.9-10.8); MONOCYTES # (AUTO) 0.6 10^3/uL (0.0-1.0); MONOCYTES % (AUTO) 9.4 %; NEUTROPHILS % (AUTO) 83.1 %; PLT - PLATELET COUNT 235 10^3/uL (130-450); RED BLOOD COUNT 4.61 10^6/uL (4.20-5.40); RED CELL DISTRIBUTION WIDTH 14.3 % (12.0-15.0)
[2024-03-08 14:28] LABS: ALBUMIN 3.6 g/dL (3.2-5.5); BILIRUBIN,TOTAL 0.3 mg/dL (0.2-1.0); CALCIUM 9.6 mg/dL (8.5-10.3); POTASSIUM 4.8 mmol/L (3.5-4.5)
[2024-03-08 14:32] LABS: ALBUMIN/GLOBULIN RATIO 0.9 (1.0-2.2); CREATININE 1.3 mg/dL (0.6-1.3); TOTAL PROTEIN 7.6 g/dL (6.4-8.9)
[2024-03-08] MEDS: IPRATROPIUM/ALBUTEROL 3 ML NEB INH STA (14:33)
[2024-03-08] MEDS: diltiaZEM INJ 5 MG/ML VIAL IVP STA ×3 (15:11→23:23)
--- NOTE | 2024-03-08 15:20 | XRAY Report ---
PROCEDURE: XR Chest 1V INDICATIONS: cough TECHNIQUE: One view of the chest was acquired. COMPARISON: 06/05/2019 FINDINGS: Surgical changes and devices: Left chest wall pacemaker. Lungs and pleura: No pleural effusions or pneumothorax. Biapical pleural parenchymal scarring. Hype rexpansion of the lungs. No new consolidation. Mediastinum: Mediastinal contours appear normal. Heart size is normal. Bones and chest wall: No suspicious bony lesions. Overlying soft tissues appear unremarkable. IMPRESSION: No acute cardiopulmonary process. Reviewed by: Scotty Bowman MD on 03/08/2024 3:18 PM PST Approved by: Scotty Bowman MD on 03/08/2024 3:18 PM PST Station ID: [id number]
[2024-03-08 15:29] LABS: B. PARAPERTUSSIS- RESP PCR PAN NOT DETECTED; B. PERTUSSIS- RESP PCR PANEL NOT DETECTED; C. PNEUMONIAE- RESP PCR PANEL NOT DETECTED; CORONAVIRUS 229E-RESP PCR NOT DETECTED; CORONAVIRUS HKU1-RESP PCR NOT DETECTED; CORONAVIRUS NL63-RESP PCR NOT DETECTED; CORONAVIRUS OC43-RESP PCR NOT DETECTED; HUMAN METAPNEUMOVIRUS NOT DETECTED; INFLUENZA A H1 2009- RESP PCR DETECTED; INFLUENZA B - RESP PCR PANEL NOT DETECTED; M. PNEUMONIAE- RESP PCR PANEL NOT DETECTED; PARAINFLUENZA VIRUS 1 NOT DETECTED; PARAINFLUENZA VIRUS 2 NOT DETECTED; PARAINFLUENZA VIRUS 4 NOT DETECTED; RHINOVIRUS/ENTEROVIRUS NOT DETECTED; RSV- RESP PCR PANEL NOT DETECTED; SARS-CoV-2 -RESP PCR PANEL NOT DETECTED
[2024-03-08] MEDS ORDERED: DEXAMETHASONE 10 MG/ML VIAL IVP STA (16:53)
[2024-03-08] MEDS: LEVALBUTEROL 1.25 MG/3 ML NEB INH STA (17:06)
[2024-03-08] MEDS: DEXAMETHASONE 10 MG/ML VIAL IVP STA (18:07)
[2024-03-08] MEDS ORDERED: ONDANSETRON 4 MG/2 ML VIAL IVP PRN (20:31)
[2024-03-08] MEDS ORDERED: ACETAMINOPHEN 500 MG TABLET PO PRN (20:31)
--- NOTE | 2024-03-08 22:20 | ED Physician Documentation ---
ED Addendum Addendum Addendum: She remained stable on my shift but still needing a bit of oxygen. Her A-fib did speed up again, going up to about 130 or 140. Did order some more diltiazem and we clarified her home meds and these were ordered except for the diuretics. Care to overnight emergency physician at 10 PM shift change. Discharge Plan Discharge Condition: Good Clinical Impression: Influenza A, Atrial fibrillation with RVR, Hypoxia Prescriptions: No Action ferrous gluconate 324 MG tablet 324 mg PO DAILY aspirin 81 MG tablet,chewable 81 mg ORAL DAILY pantoprazole 40 MG tablet,delayed release (DR/EC) 40 mg PO BID spironolactone 50 MG tablet 12.5 mg PO DAILY torsemide 10 mg tablet 10 mg PO .every other day metoprolol succinate 100 mg tablet extended release 24 hr PO Patient Comments: take 1 AND 1/2 tablets by mouth once daily digoxin 125 mcg (0.125 mg) tablet Patient Comments: take 0.5 tablet by mouth once daily ON ODD DAYS and take 1 tablet once daily ON EVEN DAYS Print Language: Singaporean Stand Alone Forms: PCP List
[2024-03-08] MEDS: METOPROLOL TARTRATE 50 MG TABLET PO STA (22:27)
[2024-03-09 05:19] LABS: EOSINOPHILS % (AUTO) 0.2 %; HCT - HEMATOCRIT 45.2 % (37.0-47.0); HGB - HEMOGLOBIN 13.9 g/dL (12.0-16.0); LYMPHOCYTES # (AUTO) 0.2 10^3/uL (1.5-3.5); LYMPHOCYTES % (AUTO) 4.8 %; MEAN CORPUSCULAR HEMOGLOBIN 32.6 pg (27.0-31.0); MEAN CORPUSCULAR HGB CONC 30.8 g/dL (32.0-36.0); MEAN CORPUSCULAR VOLUME 105.9 fL (81.0-99.0); MEAN PLATELET VOLUME 9.9 fL (7.9-10.8); MONOCYTES # (AUTO) 0.1 10^3/uL (0.0-1.0); MONOCYTES % (AUTO) 2.3 %; NEUTROPHILS # (AUTO) 4.4 10^3/uL (1.5-6.6); NEUTROPHILS % (AUTO) 92.5 %; PLT - PLATELET COUNT 199 10^3/uL (130-450); RED BLOOD COUNT 4.27 10^6/uL (4.20-5.40); RED CELL DISTRIBUTION WIDTH 14.3 % (12.0-15.0); WHITE BLOOD COUNT 4.8 x10^3/uL (4.8-10.8)
[2024-03-09 05:36] LABS: CALCIUM 8.9 mg/dL (8.5-10.3); CREATININE 1.1 mg/dL (0.6-1.3)
--- NOTE | 2024-03-09 07:16 | ED Physician Documentation ---
ED Addendum Addendum Addendum: Patient endorsed to me by Dr. Woodard at 10pm shift change. No acute events overnight. Patient endorsed to Dr. Mendieta at 7am shift change. Discharge Plan Discharge Condition: Good Clinical Impression: Influenza A, Atrial fibrillation with RVR, Hypoxia Prescriptions: No Action ferrous gluconate 324 MG tablet 324 mg PO DAILY aspirin 81 MG tablet,chewable 81 mg ORAL DAILY pantoprazole 40 MG tablet,delayed release (DR/EC) 40 mg PO BID spironolactone 50 MG tablet 12.5 mg PO DAILY torsemide 10 mg tablet 10 mg PO .every other day metoprolol succinate 100 mg tablet extended release 24 hr PO Patient Comments: take 1 AND 1/2 tablets by mouth once daily digoxin 125 mcg (0.125 mg) tablet Patient Comments: take 0.5 tablet by mouth once daily ON ODD DAYS and take 1 tablet once daily ON EVEN DAYS Print Language: Georgian Stand Alone Forms: PCP List
[2024-03-09] MEDS: ENOXAPARIN 30 MG/0.3 ML SYRINGE SUBQ SCH (08:29)
[2024-03-09] MEDS: SODIUM CHLORIDE 0.9% 1,000 ML IV STA (08:30)
[2024-03-09] MEDS: METOPROLOL SUCCINATE 50 MG TABLET PO SCH (08:35)
[2024-03-09] MEDS: PANTOPRAZOLE 40 MG TABLET PO SCH (08:48)
[2024-03-09] MEDS: DIGOXIN 125 MCG TABLET PO SCH (08:48)
--- NOTE | 2024-03-09 12:18 | ED Physician Documentation ---
ED Addendum Addendum Addendum: No significant changes overnight. Still having intermittent episodes of atrial fibrillation with rapid ventricular response, borderline hypotension and hypoxia. Patient is positive for influenza. We will admit for further care. Discussed the case with the hospitalist who accepts This document was made in part using voice recognition software. While efforts are made to proofread this document, sound alike and grammatical errors may occur. Discharge Plan Discharge Patient Disposition: [facility] DC/Xfer Condition: Good Clinical Impression: Influenza A, Atrial fibrillation with RVR, Hypoxia Prescriptions: No Action ferrous gluconate 324 MG tablet 324 mg PO DAILY aspirin 81 MG tablet,chewable 81 mg ORAL DAILY pantoprazole 40 MG tablet,delayed release (DR/EC) 40 mg PO BID spironolactone 50 MG tablet 12.5 mg PO DAILY torsemide 10 mg tablet 10 mg PO .every other day metoprolol succinate 100 mg tablet extended release 24 hr PO Patient Comments: take 1 AND 1/2 tablets by mouth once daily digoxin 125 mcg (0.125 mg) tablet Patient Comments: take 0.5 tablet by mouth once daily ON ODD DAYS and take 1 tablet once daily ON EVEN DAYS Print Language: Lithuanian
[2024-03-09] MEDS ORDERED: ONDANSETRON ODT 4 MG TABLET TL PRN (15:41)
[2024-03-09] MEDS ORDERED: SODIUM CHLORIDE FLUSH 0.9% 10 ML SYRINGE IVP PRN (15:41)
[2024-03-09] MEDS ORDERED: ACETAMINOPHEN 325 MG TABLET PO PRN (15:41)
[2024-03-09] MEDS ORDERED: ONDANSETRON 4 MG/2 ML VIAL IVP PRN (15:41)
[2024-03-09] MEDS: DIGOXIN 125 MCG TABLET PO STA (16:28)
[2024-03-09] MEDS: SODIUM CHLORIDE FLUSH 0.9% 10 ML SYRINGE IVP SCH (16:29)
[2024-03-09] MEDS: SODIUM CHLORIDE 0.9% 1,000 ML IV SCH (16:34)
--- NOTE | 2024-03-09 19:51 | HISTORY & PHYSICAL EXAMINATION ---
Chief Complaint <Gorod Stokes - Last Filed: 03/09/24 19:51> Chief Complaint Chief Complaint: Influenzae A (shortness of breath), A-fib RVR, generalized weakness History of Present Illness <Gordo Stokes - Last Filed: 03/09/24 19:51> Admitted From Admitted From:: [facility] Emergency Department History Obtained From Records Reviewed: ER physician documentation x4 (MD Mendieta, MD Woodard, MD Cao, MD Mendieta) History obtained from: Patient, Sukhi Ortiz [phone] Exam Limitations: AMS A&O3/4 (confused about time) History of Present Illness HPI Comment/Other: Ina is a 89 y/o F that presented to the ED on 03/08/24 for weakness and productive persistent cough. Granddaughter states that weakness started on tuesday03/06/24 and continued to get worse until the family brought her to the ED on 03/08. She says that water and basic movement helps resolves coughs, as well as use of her levalbuterol inhaler during coughing fits. Granddaughter states that family was sick in the house with similar symptoms and accidently passed it to Ina and her , who is still at home and recovering. Meds/Allgy <Gordo Stokes - Last Filed: 03/09/24 19:51> Home Medications Ambulatory Orders Medication Instructions Recorded Confirmed ferrous gluconate 324 mg (38 mg 324 mg PO DAILY 03/21/14 03/28/17 iron) tablet aspirin 81 mg chewable tablet 81 mg ORAL DAILY 01/10/15 03/28/17 pantoprazole 40 mg tablet,delayed 40 mg PO BID 11/06/15 03/28/17 release spironolactone 50 mg tablet 12.5 mg PO DAILY 11/06/15 03/08/24 digoxin 125 mcg (0.125 mg) tablet 0.0625 - 0.125 mg PO DAILY 03/08/24 03/09/24 metoprolol succinate 100 mg 150 mg PO DAILY 03/08/24 03/09/24 tablet,extended release 24 hr torsemide 10 mg tablet 10 mg PO .every other day 03/08/24 03/08/24 albuterol sulfate 90 mcg/actuation 2 puff inhalation Q4H PRN 03/09/24 03/09/24 aerosol inhaler shortness of breath or wheezing Allergies Allergies Allergy/AdvReac Type Severity Reaction Status Date / Time Sulfa (Sulfonamide Allergy Severe Respiratory Verified 03/08/24 13:54 Antibiotics) apple Allergy Unknown Verified 03/08/24 13:54 cao Allergy Unknown Verified 03/08/24 13:54 mushroom Allergy Unknown Verified 03/08/24 13:54 peach Allergy Unknown Verified 03/08/24 13:54 PFSH <Gordo Stokes - Last Filed: 03/09/24 19:51> Medical History Medical History (Updated 03/09/24 @ 19:28 by Gordo Stokes) Peripheral edema Injury of head and neck Pacemaker approx 2009 Syncope and collapse 08/10/2014: Syncopal episode at home. Fully alert (GCS15) upon arrival of EMS. Head injury 05/2019: Ground level fall with a head laceration. Walking in home and fell, hit her head, suffered a laceration to the forehead. No LOC. 4x4cm skin tear with avulsion, repaired with 7 sutures. 3cm laceration on the upper left forehead / hairline, repaired with 8 sutures. 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 Social History Social History Smoking Status: Unknown if ever smoked Do you dip or chew tobacco?: No Do you vape?: No Relationship: Level: Assisted Home Mobility Equipment: Wheeled walker Do you feel safe in your home environment?: No Suffered physical, verbal, emotional, or financial abuse?: No History of Abuse: No ETOH Use: Frequency: Daily Substance Use: denies use POLST Patient has POLST: No Review of Systems <Gordo Stokes - Last Filed: 03/09/24 19:51> Constitutional Reports: Fever, Weakness and Changes in appetite or eating habits (decreased for the last week) Ears, nose, mouth, and throat Reports: Dry mouth Cardiovascular Reports: Irregular heart rate and Syncope (history of syncope, no recent events); Denies: chest pain Respiratory Reports: Cough, Sputum production, Wheezing and other (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 She presents with a frail skinny habitus showing no signs of immediate distress. She is alert and oritented to self, location, and recent events, she is confused about what year it is and sometimes repeats stories or commentary. Constitutional abnormal general appearance (frail appearing), no apparent distress, abnormal body habitus (thin) and alert (Alert to self, location, and events, confused about year) HENMT normocephalic, head/scalp atraumatic, external ears normal, external nose normal, oral mucous membranes normal, dentition normal and gingiva normal non-productive cough Eyes PERRL and visual acuity normal Neck/C-Spine trachea midline JVD with alpha-wave noted while supine, resolves at 45 semi-fowlers. Lymph no lymphadenopathy noted Chest inspection of chest normal (varicose veins on L chest noted.) and palpation of chest normal Respiratory R lungs present with slight expiratory wheeze. L side has severely diminished lung sounds, rhonchi, and expiratory wheeze. Cardiovascular Fast, irregularly irregular heart rate noted. No murmurs, rubs noted upon auscultation. Gastrointestinal abdomen normal to inspection and no hepatosplenomegaly Back/Pelvis spine normal to inspection Extremities normal to inspection and full ROM Ulnar deviation of bilateral hands. Full range of motion. Neurology no movement abnormality noted, no focal motor deficit noted, no sensory deficits noted, speech normal and GCS 15 Psychiatry mental status grossly normal, thought process normal, cooperative and affect normal Confused about year, fully alert to person and location. Skin skin color normal, no ecchymosis noted, no wounds and no lacerations Sepsis Event Note (H) <Gordo Stokes - Last Filed: 03/09/24 19:51> Sepsis Criteria Sepsis Criteria: Recorded Heart Rate greater than 90 bpm Conclusion/Plan <Gordo Stokes - Last Filed: 03/09/24 19:51> Problem List (1) Hypoxia: Plan: * Patient was admitted for hypoxia with an initial respiratory rate >20 and an SpO2 of <90 on room air. * Pt was placed on 2LPM O2 NC resulting in SpO2>92% * at the point of admission into inpatient care, patent no longer required NC O2 to maintain SpO2>92% and a respiratory rate <20 and O2 supplementation was discontinued. * No new consolidations, pleura effusions, or pneumothorax noted upon CXR on 03/08/24 * Orders are placed for Oxygen therapy PRN if SpO2 drops below 92% (2) Atrial fibrillation with RVR: Plan: * Patient presents with pulse variations from 90 - 150 * Orders placed for home medication dose of Metroprolol Succunate PO daily for rate control * Orders placed for Digoxin PO daily for rate control * Pulse rate has been successfully controlled with Metoprolol and Digoxin (3) Influenza A: Plan: * Nasal swab is postitive for Influ A H1 * Persistant cough,, episodes of wheezing * Episodes of rhonchi cleared with coughing fits * Droplet precautions are in place for staff and visitors (4) Asthma: Plan: * Orders for home Rx of Levalbuterol were placed PRN for coughing fits and asthma related wheezing episodes Lab Results Lab results reviewed: Yes 03/09/24 05:08 03/09/24 05:08 EKG Results EKG Comparison: Unchanged from prior EKG and Old EKG unavailable <Francine Herzog MD - Last Filed: 03/09/24 19:51> Problem List (1) Hypoxia: (2) Atrial fibrillation with RVR: (3) Influenza A: (4) Asthma: Core Measures <Gordo Stokes - Last Filed: 03/09/24 19:51> Anticipated LOS I expect patient to be DC'd or transferred within 96 hours.: Yes DVT/VTE - Prophylaxis VTE/DVT Device ordered at admit?: No VTE/DVT Prophylaxis med ordered at admit?: Yes Stroke - Rehab Assessment Rehab services assessment to be ordered?: No Not Ordered - Patient Reason: Requests alternative treatment (Pt placed on Lovenox 30mg SubQ daily while in inpatient care) AMI - Statin at Admit Aspirin Prescribed on Admit: No
[2024-03-09] MEDS: LEVALBUTEROL 1.25 MG/3 ML NEB INH PRN (20:14)
[2024-03-09] MEDS: methylPREDNISolone SUCCINATE 40 MG/ML VIAL IVP SCH (22:10)
[2024-03-09] MEDS: METOPROLOL 5 MG/5 ML VIAL IVP PRN (22:10)
[2024-03-09] MEDS: METOPROLOL SUCCINATE 25 MG TABLET PO SCH (22:52)
[2024-03-10] MEDS: METOPROLOL 5 MG/5 ML VIAL IVP PRN (03:30)
[2024-03-10 06:15] LABS: HCT - HEMATOCRIT 43.7 % (37.0-47.0); HGB - HEMOGLOBIN 13.4 g/dL (12.0-16.0); LYMPHOCYTES # (AUTO) 0.2 10^3/uL (1.5-3.5); LYMPHOCYTES % (AUTO) 2.9 %; MEAN CORPUSCULAR HEMOGLOBIN 32.1 pg (27.0-31.0); MEAN CORPUSCULAR HGB CONC 30.7 g/dL (32.0-36.0); MEAN CORPUSCULAR VOLUME 104.5 fL (81.0-99.0); MEAN PLATELET VOLUME 9.7 fL (7.9-10.8); MONOCYTES # (AUTO) 0.4 10^3/uL (0.0-1.0); MONOCYTES % (AUTO) 5.3 %; NEUTROPHILS # (AUTO) 6.9 10^3/uL (1.5-6.6); NEUTROPHILS % (AUTO) 91.5 %; PLT - PLATELET COUNT 214 10^3/uL (130-450); RED BLOOD COUNT 4.18 10^6/uL (4.20-5.40); RED CELL DISTRIBUTION WIDTH 14.2 % (12.0-15.0); WHITE BLOOD COUNT 7.5 x10^3/uL (4.8-10.8)
[2024-03-10 06:30] LABS: ALBUMIN 3.3 g/dL (3.2-5.5); BILIRUBIN,TOTAL 0.2 mg/dL (0.2-1.0); CALCIUM 8.9 mg/dL (8.5-10.3); CREATININE 0.9 mg/dL (0.6-1.3); POTASSIUM 4.7 mmol/L (3.5-4.5); TOTAL PROTEIN 6.5 g/dL (6.4-8.9)
[2024-03-10] MEDS: polyethylene glycoL 3350 17 GM PACKET PO SCH (08:13)
[2024-03-10] MEDS: diltiaZEM INJ 5 MG/ML VIAL IVP ONE (08:15)
[2024-03-10] MEDS: IPRATROPIUM 0.2 MG/ML NEB INH SCH ×3 (11:00→20:14)
--- NOTE | 2024-03-10 15:18 | PHARMACY PROGRESS NOTE ---
Best Possible Medication History Admit Date and Time: 03/09/24 [id number] Home Medications Medication Instructions Recorded Confirmed Type pantoprazole 40 mg tablet,delayed 40 mg PO BID 11/06/15 03/10/24 History release spironolactone 50 mg tablet 12.5 mg PO DAILY 11/06/15 03/08/24 History digoxin 125 mcg (0.125 mg) tablet 0.0625 - 0.125 mg PO DAILY 03/08/24 03/09/24 History metoprolol succinate 100 mg 150 mg PO DAILY 03/08/24 03/09/24 History tablet,extended release 24 hr torsemide 10 mg tablet 10 mg PO .every other day 03/08/24 03/08/24 History albuterol sulfate 90 mcg/actuation 2 puff inhalation Q4H PRN 03/09/24 03/09/24 History aerosol inhaler shortness of breath or wheezing Processed by: Pharmacy Medications reviewed in ED?: No Medication History completed: Yes Patient Interview: Pt refused Secondary Source(s): Insurance records [facility] Statement: [employer] insurance records reviewed for [facility]. Pt would not participated in medication interview and insists that albuterol mdi is the only home medication. As the person ultimately responsible for medication therapy, providers are able to order a medication from an existing home medication list in [facility] via the "Reconcile Routine" prior to Confirmation of that medication by network desktop support specialist. Such practice is discouraged except when the physician, in their clinical judgment, deems that a medical need exists for a medication without regard to previous use.
--- NOTE | 2024-03-10 16:46 | PROVIDER PROGRESS NOTE ---
Documented by User: Gordo Stokes 03/10/24 17:38 Progress Note Progress Note Progress Note: Writen by Gordo MELÉNDEZ internal medicine Date/Time: 03/10/2024 15:50 Subjective Ina came into the ED on 03/08 for weakness and productive cough. She was transferred to inpatient care due to hypoxia and Afib RVR. She describes herself as a "tough old bird" and presents as a pleasant yet gritty 89 y/o F with a frail thin habitus. During my check in at 15:40, she was asleep semifowlers and showed no signs of distress. She awoke during my assessment and was happy to see me, telling me that she feels much better after getting her breathing treatments. She still has a cough but is able to clear her airway with one or two coughs and does not fall into the previous coughing fits that she was experiencing prior to the levalbuterol and ipratropium neb treatments. When I visited her during lunch she stated that she wasn't hungry and was afraid that she would vomit if she ate but denied any nausea, vomiting, or abdominal pain. She states that she was eventually able to eat part of her sandwich but wasn't ultimately very hungry. Objective Mental Status: Alert and oriented to self, location, events, but confused about year/time. this is normal per her granddaughter. She is able to answer all questions clearly and follow instructions. HEENT: normocephalic, eyes are DARYL, slightly dry oral mucosa. Neck: No JVD noted while sitting at semi-fowlers, traceha midline, no c-spine pain upon palpation Chest: Varicose veins noted on L chest (present at admit). No abnormalities noted Respiratory: Rhonchi noted on Right side, cleared with cough. No wheezing noted. 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 Appropriate respiratory rate and depth with no accessory muscle use. Cardio: Strong irregularly irregular heart rate. Rate of approx 80 per palpation. No murmurs noted upon auscultation Abdomen: No pain, tenderness, or guarding noted upon palpation. Extremities: Pulse, motor, and sensation intact in all extremities. No edema noted. Ulnar diviation of metacarpal joints noted. Neuro: No neuro deficits noted. Mentation at baseline: A&Ox3/4 Assessment / Plan Hypoxia - primary reason for continued care * Patient was admitted for hypoxia secondary to +Influenza A nasal swab. * Initial respiratory rate >20 and an SpO2 of <90 on room air. * Pt was placed on 2LPM O2 NC resulting in SpO2>92% * At the point of admission into inpatient care, patent no longer required NC O2 to maintain SpO2>92% and a respiratory rate <20 and O2 supplementation was discontinued. * No new consolidations, pleura effusions, or pneumothorax noted upon CXR on 03/08/24 Plan * PRN O2 NC to maintain SpO2 >92% Asthma - * Home albuterol was discontinued due to initial AFib RVR Plan: * PRN Levalbuterol 1.25mg Q4h and one time Ipratropium neb treatments were initiated today at 14:42. Lb stated immediate relieve from cough and "tightness" after treatment. * I reminded the patient that when she feels and asthma attack coming on or chest tightness that she needs to ring the olivas and alert her nurse for breathing treatments Afib w/ RVR: * Heart rate upon admit to ED was >140bpm * Removed Albuterol from medications due to possible B1 agonist, replaced with levalbuterol Plan: * Rate control with PO Metoprolol Succinate 150 PO * Rate control PRN Metoprolol Tartrate 5mg IV * Rate control with Digoxin 62.5 mcg PO Influenza A: * Positive (+) Influenza A nasal swab on 03/08/24 Plan: * Patent is currently on droplet precautions Standard Care Plan: * determine Ina's Primary Care Provider name and contact * Update POLST form / DNR status
[2024-03-10] MEDS: BUDESONIDE 0.5 MG/2 ML NEB INH SCH (20:14)
[2024-03-10] MEDS: ZINC OXIDE 20% OINT 30 GM TUBE TOP PRN (22:22)
[2024-03-11 06:08] LABS: BASOPHILS % (AUTO) 0.1 %; EOSINOPHILS % (AUTO) 0.1 %; HCT - HEMATOCRIT 45.2 % (37.0-47.0); HGB - HEMOGLOBIN 13.9 g/dL (12.0-16.0); LYMPHOCYTES # (AUTO) 0.2 10^3/uL (1.5-3.5); LYMPHOCYTES % (AUTO) 2.2 %; MEAN CORPUSCULAR HGB CONC 30.8 g/dL (32.0-36.0); MEAN CORPUSCULAR VOLUME 104.1 fL (81.0-99.0); MEAN PLATELET VOLUME 9.8 fL (7.9-10.8); MONOCYTES # (AUTO) 0.2 10^3/uL (0.0-1.0); MONOCYTES % (AUTO) 2.2 %; NEUTROPHILS # (AUTO) 7.5 10^3/uL (1.5-6.6); PLT - PLATELET COUNT 236 10^3/uL (130-450); RED BLOOD COUNT 4.34 10^6/uL (4.20-5.40); RED CELL DISTRIBUTION WIDTH 14.3 % (12.0-15.0); WHITE BLOOD COUNT 7.9 x10^3/uL (4.8-10.8)
[2024-03-11 06:22] LABS: CALCIUM 9.2 mg/dL (8.5-10.3); CREATININE 0.8 mg/dL (0.6-1.3); POTASSIUM 4.9 mmol/L (3.5-4.5)
[2024-03-11] MEDS: oxyCODONE 5 MG TABLET PO PRN (11:46)
[2024-03-11 12:49] VITALS: BP 119/74; TEMP 98.1; O2SAT 91
--- NOTE | 2024-03-11 14:56 | ADVANCE CARE PLANNING NOTE ---
Advance Care Planning Planning Encounter Date: 03/11/24 Time: 10:50 Purpose: Establish CODE STATUS and care goals Parties in Attendance: Daughter is on the phone, myself. I met with the patient before this phone libby more Decisional Capacity of the Patient: Still makes a lot of her own decisions with regards to healthcare matters, but daughter states that mom is forgetful. Sometimes does not make practical choices but daughter is being respectful and trying to let mom make decisions Diagnosis for Encounter (1) Hypoxia: (2) Atrial fibrillation with RVR: (3) Influenza A: (4) Asthma: Encounter Subjective/Patient's Story: Elderly female with mild dementia who lives in her own home with her and daughter. Although she has 9 children, only 2 of them are actively involved in her life. 1 is her daughter who lives with her. Granddaughter lives down the [facility]. Grandson also lives down the road and is a help. And the other person is a son who lives in [place] and comes home to visit is much as he can. The other 7 children are around[place], but they are not much help. She and her sleep upstairs. They have a chairlift that they can sit on and it takes him up to the stop of the stairs. But then they have 3 steps to get into their bedroom. She is able to dress herself, feed herself. This last week has been very difficult for her so daughter needed to help her a lot with dressing because she was so weak and tired from the flu. She uses a walker for ambulation once she is downstairs. Her favorite thing to do is get downstairs slowly in the morning. Eat breakfast and get coffee. And spend the day at the dining room table reading magazines, being on [employer]. Just "toodling around". Daughter cooks and cleans. Gets the food ready for mom. Daughter does the laundry for mom. The patient has a primary care provider with Dr. Daiana Hassan. Unfortunately Dr. Hassan retired recently and the patient is needing to find a new primary care provider. All of her other providers for cardiology, etc. are [facility]. The patient laments that she misses Dr. Douglas. She was his patient for close to 40 years. She has been gently losing her memory over the last few years. Daughter feels that it is mild. Patient already has a feisty personality to begin with and sometimes it is difficult to get mom to be convinced to do something because of the personality and no the mild dementia superimposed on top of it. It is getting more difficult to take care of her elderly parents. She gets up at 5:30 in the morning to make sure they are downstairs safely. She then feeds in the breakfast. Then the daughter has to go off to work. She works full-time and she works all day. She will get home at night to make sure her parents been fed, taking their medicines, gotten the best, and generally looks out for them. Daughter cannot believe how later parents stay up. They state to 11:30 at night. Because the daughter is afraid to go to following the story, she stays up to help her parents get up to bed. But the daughter is exhausted because she is going to bed at midnight and waking up at 5:30 in the morning. When I asked the patient about CODE STATUS, she states that "Dr.Dr. Mariee has all that" and "I don't want to do it again". He is her winter intern at [employer]. When I speak to her daughter about this, she states that it really has not been discussed. As far she knows her mom is a full code. They have started the paperwork at home but never completed it. They do not have formal paperwork about the daughter being DPOA but the daughter is a designated DPOA according to the patient. Daughter says they have never really talked about resuscitation. They have not talked about care goals. They have not talked about going to a residential. They have not talked about what is going to happen if she cannot take care of them in the home. She knows that they just cannot afford a residential. Daughter states she is already overwhelmed with having to be caregiver for her parents right now. The idea of doing legal maneuvering, discussing CODE STATUS, advanced directives is exhausting. But she knows she has to do it. Objective/Medical Story: Ina is a 89 y/o F that presented to the ED on 03/08/24 for weakness and productive persistent cough. Granddaughter states that weakness started on tuesday03/06/24 and continued to get worse until the family brought her to the ED on Thrusday 03/08. She says that water and basic movement helps resolves coughs, as well as use of her levalbuterol inhaler during coughing fits. Granddaughter states that family was sick in the house with similar symptoms and accidently passed it to Ina and her , who is still at home and recovering.In the ER she was hypoxic, tachycardic, febrile. When she received IV fluids, nebulizers, until she has much improved.Chest x-ray is without pneumonia. Her PCR panel was positive for influenza A. Medical History (Updated 03/09/24 @ 19:28 by Gordo Stokes) Peripheral edema Injury of head and neck Pacemaker approx 2014 Syncope and collapse08/10/2014: Syncopal episode at home. Fully alert (GCS15) upon arrival of EMS.Head injury 05/2019: Ground level fall with a head laceration. Walking in home and fell, hit her head, suffered a laceration to the forehead. No LOC. 4x4cm skin tear with avulsion, repaired with 7 sutures. 3cm laceration on the upper left forehead / hairline, repaired with 8 sutures. 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 In the last 2 days she has responded to oxygen. IV fluids. And just symptomat ic management. She is now off oxygen today. Goals of Care: The patient wants to live for as long as possible and live in her own home. She really is reluctant to have a conversation about what will happen when she and her need more care and how will the daughter be able to do it. Plan: At this point in time it is not very specific to what to do. At this point the first steps will be: 1. For the daughter to sit down and talk with her brother and her daughter and son about the logistics of taking care of these elderly people in place. 2. Establish her mom with a primary care provider soon as possible so that she can have ongoing continuity of care. A primary care provider will be harley in moving forward in stabilizing this patient's condition and helping to establish future care goals. 3. Even though the patient says that she has a POLST form at home, daughter is pretty sure she does not. Daughter is also pretty sure that Dr. Mariee does not have those forms either. So she is going to sit down and talk to her parents, with her brother, and her children in a group situation so that questions can be asked and answered. Ask mom what she wants to do. And the daughter endorses she will try and get a POLST form done as soon as possible. I also told the daughter to get a DPOA form done as well. 4. I did offer the opportunity for them to [facility] if they qualify. She states she does not think we need to do that because she does all the cooking for her mom and dad and they seem to like her food. We then talked about a little more help so I will be ordering home health PT and OT. Social work. And a bath aide. Code Status: Attempt Resuscitation Time spent on advance care plannin
--- NOTE | 2024-03-11 18:35 | Discharge Summary ---
"Discharge Summary Admit Date: 03/09/24 Discharge Date: 03/11/24 Discharging Provider: Francine Herzog MD Primary Care Provider: No PCP, [facility] to [facility] Medical Code Status: Attempt Resuscitation DIAGNOSES Discharge Diagnoses with Status of Each Condition: 1. Acute respiratory failure with hypoxia 2. Influenza A infection 3. Atrial fibrillation with RVR 4. Asthma with exacerbation HPI History of Present Illness: Ina is a 89 y/o F that presented to the ED on 03/08/24 for weakness and productive persistent cough. Granddaughter states that weakness started on tuesday03/06/24 and continued to get worse until the family brought her to the ED on 03/08. She says that water and basic movement helps resolves coughs, as well as use of her levalbuterol inhaler during coughing fits. Granddaughter states that family was sick in the house with similar symptoms and accidently passed it to Ina and her , who is still at home and recovering She is weak, tired, constantly coughing. Barrier to getting a full history was that cough, and her fatigue. She also has poor memory and not really clear on what her past medical history is other than what we cleaned in the chart.She is to see jairo Hassan as a primary care provider. Dr. Hassan has retired and the patient has been unable to get a new primary care provider as of yet. The patient's daughter lives with her and her . She also has a granddaughter and grandson that lives down the road. Those 3 people are her primary caregivers. She and her live on the second story of a two-story home and use a chairlift to get down the stairs. But she still needs 3 stairs to get from the upper floor to the chairlift. CONSULTS | PROCEDURES Procedures: Chest x-ray does not have acute cardiopulmonary process. She has biapical pleural-parenchymal scarring. She tells me that she had tuberculosis in her youth when her dad brought at home. HOSPITAL COURSE Hospital Course: I was able to speak to his colleague Timmy Schroeder MD. He did not know the patient and called me back after he went to go review the medical record. He says that she has a long history of atrial fibrillation. With her last echocardiogram her ejection fraction was normal. She is not anticoagulated nor do they plan on anticoagulating her. Risk outweighs benefit. She had a recent GI bleed. He feels that if she is fluid overloaded or her atrial fibrillation gets out of control she will have diastolic heart failure but not systolic heart failure. Her cardiac history dates back to 2014 when she had an episode of syncope. In July 2014 she was transferred to [facility] and a pacer was placed. She then had an episode of congestive heart failure with severe shortness of breath February 2015 and again an ambulance took her to [facility]. She fell in February 2018 and underwent a left arm fracture, right tibial plateau fracture and was again treated at [facility]. In March 2018 she had worse dyspnea on exertion and crackles on exam and went to [facility]. After that she went to rehab temporarily. In April 2018 she was short of breath for 2 weeks and was treated for diastolic heart failure. In 2019 she fell and lacerated her head. March 2020 she fell and had a left ankle sprain. She then fell again January 2021 and had a left maloney tear and right knee pain which was treated at [facility]. Our treatment here consisted of supplemental oxygen, encouragement of p.o. fluids but I did not maintain IV drip. Nebulizer treatments with leave albuterol as opposed to albuterol because of her A-fib with RVR. I also started her on inhaled steroid and Atrovent. She improved with all of these measures and was able to come off oxygen and go to room air. She is still able to ambulate without an assist or just a standby assist. PT evaluated her and felt she was not a candidate for alf facility rehab. But recommended home health. Advance care planning conversation was held with this vincent lady and with her daughter. Please see that note. She is still a full code. While she was here, her was admitted for influenza A as well. He is still here while she is being discharged. She is discharged in stable condition with home health. Exam at discharge with a blood pressure of 119/74, pulse 91, respirations 24, temperature 36.7. 91% on room air at rest. I am not finding a note from respiratory therapy but I did have respiratory therapy do a desat test. She remains above 90% with exertion. She is discharged with a dry cough. Much less frequently present than it was on admission. She still has rhonchi throughout all lung hurtado but they clear with a deep cough. No tachypnea no increased respiratory rate with exertion. She has an irregular rate and rhythm. Initially her rate was in the 120s or 130s when she was admitted. It is gradually slow down. This morning she was as high as 130 1 in the morning with a hacking cough. At discharge she is 87 or 91. Abdomen is soft, nontender. Normal bowel sounds. Extremities have no edema. Greater than 30 minutes was spent coordinating discharge, speaking to the daughter about my concerns for the future, educating the patient on the use of new medications of Spiriva and budesonide. I would like her to see her primary care provider in follow-up. Daughter is working on establishing her with a local clinic. This document was made in part using voice recognition software. While efforts are made to proofread this document, sound alike and grammatical errors may occur. ALLERGIES Allergies Allergy/AdvReac Type Severity Reaction Status Date / Time Sulfa (Sulfonamide Allergy Severe Respiratory Verified 03/08/24 13:54 Antibiotics) apple Allergy Unknown Verified 03/08/24 13:54 cao Allergy Unknown Verified 03/08/24 13:54 mushroom Allergy Unknown Verified 03/08/24 13:54 peach Allergy Unknown Verified 03/08/24 13:54 MEDICATIONS Ambulatory Orders Medication Instructions Recorded Confirmed pantoprazole 40 mg tablet,delayed 40 mg PO BID 11/06/15 03/10/24 release spironolactone 50 mg tablet 12.5 mg PO DAILY 11/06/15 03/08/24 digoxin 125 mcg (0.125 mg) tablet 0.0625 - 0.125 mg PO DAILY 03/08/24 03/09/24 metoprolol succinate 100 mg 150 mg PO DAILY 03/08/24 03/09/24 tablet,extended release 24 hr torsemide 10 mg tablet 10 mg PO .every other day 03/08/24 03/08/24 albuterol sulfate 90 mcg/actuation 2 puff inhalation Q4H PRN 03/09/24 03/09/24 aerosol inhaler shortness of breath or wheezing budesonide 90 mcg/actuation breath 1 inh inhalation BID wheezing #1 ea 03/11/24 activated powder inhaler tiotropium bromide 18 mcg capsule 1 cap inhalation DAILY #30 03/11/24 with inhalation device (Spiriva inhalations with HandiHaler) LABS 03/11/24 05:48 03/11/24 05:48 SEPSIS Sepsis Criteria: Recorded Heart Rate greater than 90 bpm Discharge Plan Discharge Patient Disposition: 06 Home Health Service Condition: Good Prescriptions: New budesonide 90 mcg/actuation aerosol powdr breath activated 1 inh inhalation BID Qty: 1 2RF tiotropium bromide [Spiriva with HandiHaler] 18 mcg capsule, w/inhalation device 1 cap inhalation DAILY Qty: 30 2RF Rx Instructions: puncture 1 cap using device; one dose = 2 inhalations Continued pantoprazole 40 MG tablet,delayed release (DR/EC) 40 mg PO BID spironolactone 50 MG tablet 12.5 mg PO DAILY torsemide 10 mg tablet 10 mg PO .every other day metoprolol succinate 100 mg tablet extended release 24 hr 150 mg PO DAILY Patient Comments: take 1 AND 1/2 tablets by mouth once daily digoxin 125 mcg (0.125 mg) tablet 0.0625 - 0.125 mg PO DAILY Patient Comments: take 0.5 tablet by mouth once daily ON ODD DAYS and take 1 tablet once daily ON EVEN DAYS albuterol sulfate 90 mcg/actuation HFA aerosol inhaler 2 puff INHALATION Q4H PRN (Reason: shortness of breath or wheezing) Activity Restrictions: Activity as Tolerated Diet: Regular Health Concerns: This vincent lady is part of a family group were a family member became ill with influenza A. And now the whole family has it. She lives with her . He also has influenza A and is in the hospital room down the hallway. Her flu caused her to have coughing that was uncontrolled. She already has a history of asthma and uses albuterol handheld inhaler many times a day even at baseline. Coughing was worse, confusion became worse. When she came to the emergency room she was identified as having high oxygen requirement, but chest x-ray was normal and did not have pneumonia. Treatment consisted of of albuterol, Atrovent, intravenous steroids, guaifenesin, and oxygen therapy. Today she does not require any oxygen. She is eating her food. She is still weak, tired. I did discuss future plans with her daughter and DPOA. The patient herself refuses to go to a alf facility for rehab. Her daughter will have to sit down and discuss this with one of her siblings, and her 2 children, to decide what the future will be if these elderly people require more and more caregiving. Instructions for discharge: 1. Unfortunately you do not have a primary care provider since Dr. Hassan retired. Please see if you can establish yourself with any of the primary care providers at the [facility] for [facility]. You already have all your other providers through [facility] and [facility].Or you can be seen at [facility]. You have Medicare insurance. You should be able to get into see them in their office. 2. I am sending you home with home health RN, physical therapist, and a home health aide. You are weak, tired, coughing. You need a little bit of help to bathe, and get stronger. 3. Part of her treatment here included asthma medication that you do not have at home. So I am prescribing budesonide which is 1 puff twice a day. It is not an as needed medicine. It is to be a scheduled dose of 1 puff twice a day. After you use that medicine, you need to rinse out your mouth with hydrogen peroxide and water. 4. I am also prescribing Spiriva. We used it on you here in the hospital and it really did help bring down your cough as well. Spiriva is a inhalation to be used once a day only. You can continue using your albuterol as many times a day as you see fit. 5. One of the other things we noticed on you was an uncontrolled heart rate. I spoke to your barrel finisher office and they say that you have a known history of atrial fibrillation. Unfortunately we are use your albuterol inhaler as much as you do, it stimulates your heart rate to go even faster. Try not to use your albuterol inhaler more than 4 times a day. Obviously will use it as you see fit but try not to use it more than 4 times a day. Print Language: Swedish Patient Instructions: Budesonide inhalation powder, Tiotropium inhalation powder, Asthma Follow-up Care: EMMA SWAN ARNP [Physician No Access] - RAUL ROQUE ARNP [Physician No Access] - Marci Jorge ARNP [Physician No Access] -"
== END 2024-03-11 14:20 | disposition home health service (06) | DRG 189 ==
LOC: ED 13:27 → MS2 03-09 12:58
PROVIDERS: ADMIT Specialist; ATTEND Specialist